=== PATIENT | female | born 1945 | race Caucasian/White ===

== ENCOUNTER 2018-12-06 13:08 | Emergency (ER) | payer MEDICARE, OTHER ==
[~2018-12-06] VITALS: Ht 175.3 cm; Wt 56.2 kg
[~2018-12-06 13:08] MED LIST: CHOL200074 PO; DIPH25CA61 PO; ESOM40CA PO; IBUP200C8 PO; OMEG1CAP23 PO; SIME125T PO
[2018-12-06 13:31] VITALS: BP 141/75
--- NOTE | 2018-12-06 13:50 | NUR ---
NO ANSWER IN LOBBY X1
--- NOTE | 2018-12-06 14:13 | NUR ---
PT TO ROOM FROM LOBBY
== END 2018-12-06 14:58 ==
LOC: ED 14:52
DX: J01.90 Acute sinusitis, unspecified (principal); B34.9 Viral infection, unspecified
CPT/HCPCS: 71046; 99283

== ENCOUNTER 2018-12-22 15:52 | Outpatient (CLI) | payer MEDICARE, MEDICAID | END 2018-12-22 23:59 | disposition home or self-care (01) | LOC: RAD 15:52 | PROVIDERS: ATTEND Internal Medicine | DX: M25.572 Pain in left ankle and joints of left foot (principal); M79.672 Pain in left foot ==